=== PATIENT | male | born 1975 | race Hispanic/Latino ===

== ENCOUNTER 2022-01-22 18:55 | Emergency (ER) | payer OTHER ==
[2022-01-22] MEDS ORDERED: Bacitracin 1 PK ONE (22:13)
== END 2022-01-22 22:28 | disposition home or self-care (01) ==
LOC: ERS 18:55
DX: S01.01XA Laceration without foreign body of scalp, initial encounter (principal); M54.2 Cervicalgia; M25.532 Pain in left wrist; I10 Essential (primary) hypertension; W01.198A Fall on same level from slipping, tripping and stumbling with subsequent striking against other object, initial encounter
CPT/HCPCS: 70450; 72125